=== PATIENT | male | born 1950 | race Caucasian/White ===

== ENCOUNTER 2018-02-14 12:56 | Day surgery (SDC) | payer BC ==
[~2018-02-14] VITALS: Ht 172.7 cm; Wt 92.9 kg
[~2018-02-14 12:56] MED LIST: ASPI81EC; CITA20; LISI20; OXYACE5T PO; PRAV20
== END 2018-02-14 16:12 | disposition home or self-care (01) ==
LOC: ORSCSDS 12:56
PROVIDERS: Internal Medicine Gastroenterology
PROC: 0DBM8ZX Excision of Descending Colon, Via Natural or Artificial Opening Endoscopic, Diagnostic (ICD-10-PCS; principal; 2018-02-14 14:30)
DX: Z12.11 Encounter for screening for malignant neoplasm of colon (principal); D12.4 Benign neoplasm of descending colon; K21.9 Gastro-esophageal reflux disease without esophagitis; K57.30 Diverticulosis of large intestine without perforation or abscess without bleeding; G47.30 Sleep apnea, unspecified; I10 Essential (primary) hypertension; E66.9 Obesity, unspecified; Z68.34 Body mass index [BMI] 34.0-34.9, adult; Z79.82 Long term (current) use of aspirin; Z79.899 Other long term (current) drug therapy
CPT/HCPCS: 88305; J1980; J7120

== ENCOUNTER 2021-11-12 09:21 | Day surgery (SDC) | payer OTHER ==
[~2021-11-12] VITALS: Ht 172.7 cm; Wt 100.4 kg
[2021-11-12] MEDS ORDERED: ALLO300 PO (10:31)
--- NOTE | 2021-11-12 11:19 | NUR ---
11/12/21 1119 Rebecca Camarena TIME OUT AT 1105 TO VERIFY CORRECT PT, LOCATION, PROCEEDURE AND ALLERIGIES. PT ELECTEDTO PROCEED. RELAXING MEDICATION PROVIDED BY DR. SILVA. VSS THROUGHOUT PROCEEDURE. PT TOLERATED WELL.
== END 2021-11-12 13:55 | disposition home or self-care (01) ==
LOC: ORSCSDS 09:21
PROVIDERS: Orthopaedic Surgery
PROC: 0LM14ZZ Reattachment of Right Shoulder Tendon, Percutaneous Endoscopic Approach (ICD-10-PCS; principal; 2021-11-12 11:00)
PROC: 0RNJ4ZZ Release Right Shoulder Joint, Percutaneous Endoscopic Approach (ICD-10-PCS; principal; 2021-11-12 11:00)
PROC: 0RBJ4ZZ Excision of Right Shoulder Joint, Percutaneous Endoscopic Approach (ICD-10-PCS; principal; 2021-11-12 11:00)
DX: M75.121 Complete rotator cuff tear or rupture of right shoulder, not specified as traumatic (principal); M75.41 Impingement syndrome of right shoulder; S46.219A Strain of muscle, fascia and tendon of other parts of biceps, unspecified arm, initial encounter; I10 Essential (primary) hypertension; G47.33 Obstructive sleep apnea (adult) (pediatric); K21.9 Gastro-esophageal reflux disease without esophagitis; Z79.899 Other long term (current) drug therapy; Z79.82 Long term (current) use of aspirin; E78.5 Hyperlipidemia, unspecified; E66.9 Obesity, unspecified; Z68.33 Body mass index [BMI] 33.0-33.9, adult
CPT/HCPCS: C1713; J0171; J0690; J1100; J2250; J2405; J2704; J3010; J7120